=== PATIENT | female | born 1945 | race Caucasian/White ===

== ENCOUNTER 2024-03-29 07:22 | Observation (INO) ==
[2024-03-29] MEDS: methylPREDNISolone SOD SUCC 125 MG/2 ML VIAL IM ONE (08:03)
[2024-03-29] MEDS: IPRATROPIUM/ALBUTEROL 3 ML AMPUL.NEB NEB ONE ×2 (08:05→09:10)
[2024-03-29] MEDS: AZITHROMYCIN 250 MG TABLET PO ONE (09:30)
[2024-03-29] MEDS: AMOXICILLIN/POTASSIUM CLAV 875 MG TABLET PO ONE (09:31)
[2024-03-29 09:35] LABS: Basophils # (Auto) 0.03 K/mcL (0.00-0.30); Basophils % (Auto) 0.6 % (0.0-2.0); Eosinophils % (Auto) 5.6 % (0.0-7.0); Hematocrit 37.9 % (34.1-44.9); Hemoglobin 11.9 g/dL (11.2-15.7); Lymphocytes # (Auto) 1.14 K/mcL (1.50-4.80); Lymphocytes % (Auto) 21.4 % (15.5-49.0); Mean Cell Volume 79.6 fL (80.0-100.0); Mean Corpuscular HGB Conc 31.4 g/dL (31.0-36.0); Mean Platelet Volume 12.3 fL (8.8-12.5); Monocytes # (Auto) 0.39 K/mcL (0.10-0.90); Monocytes % (Auto) 7.3 % (1.0-12.0); Neutrophils % (Auto) 65.1 % (38.0-78.0); Platelet Count 180 K/mcL (140-440); RBC 4.76 M/mcL (3.59-5.38); Red Cell Distribution Width 16.7 % (11.5-14.5); WBC 5.3 K/mcL (4.5-11.0)
[2024-03-29 09:51] LABS: Blood Urea Nitrogen 13 mg/dL (8-23); Calcium 9.1 mg/dL (8.6-10.4); Carbon Dioxide 24 mmol/L (22-30); Chloride 104 mmol/L (96-108); Glomerular Filtration Rate 54; Glucose 120 mg/dL (70-105)
[2024-03-29] MEDS: ALBUTEROL SULFATE 2.5 MG/3 ML NEBULIZER NEB ONE (11:05)
[2024-03-29] MEDS ORDERED: ONDANSETRON 4 MG/2 ML VIAL IV PRN (13:27)
[2024-03-29] MEDS: predniSONE 20 MG TABLET PO SCH (13:46)
[2024-03-29] MEDS: ACETAMINOPHEN 325 MG TABLET PO PRN (13:46)
[2024-03-29] MEDS: 0.9 % SODIUM CHLORIDE 10 ML SYRINGE IV SCH (13:47)
[2024-03-29] MEDS: guaiFENesin/DEXTROMETHORPHAN 5ML UD CUP PO PRN (13:47)
[2024-03-29] MEDS ORDERED: IPRATROPIUM/ALBUTEROL 3 ML AMPUL.NEB NEB PRN (14:21)
[2024-03-29] MEDS ORDERED: IPRATROPIUM/ALBUTEROL 3 ML AMPUL.NEB NEB SCH (15:00)
[2024-03-29] MEDS: IPRATROPIUM/ALBUTEROL 3 ML AMPUL.NEB NEB SCH (16:05)
[2024-03-29] MEDS: traZODone HCL 50 MG TABLET PO PRN (19:40)
[2024-03-29] MEDS: DOCUSATE SODIUM 100 MG CAPSULE PO SCH (20:41)
[2024-03-29] MEDS: SENNOSIDES 1 TABLET PO SCH (20:41)
[2024-03-30] MEDS ORDERED: LEVOTHYROXINE 75 MCG TABLET PO SCH (07:30)
[2024-03-30] MEDS ORDERED: OMEPRAZOLE 20 MG CAPSULE PO SCH (07:30)
[2024-03-30] MEDS ORDERED: ENOXAPARIN 40 MG/0.4 ML SYRINGE SQ SCH (09:00)
[2024-03-30] MEDS ORDERED: AZITHROMYCIN 250 MG TABLET PO SCH (09:00)
== END 2024-03-29 21:46 | disposition home or self-care (01) ==
LOC: ED 07:22 → MEDSUR 07:22
PROVIDERS: ADMIT Internal Medicine; ATTEND Internal Medicine